=== PATIENT | male | born 2000 | race Hispanic/Latino ===

== ENCOUNTER 2020-03-08 22:31 | Emergency (ER) | payer OTHER ==
[2020-03-08] MEDS ORDERED: TETRACAINE HCL 0.5% 4 ML OPHTH SOLN ONE (23:05)
[2020-03-08] MEDS ORDERED: FLUORESCEIN SODIUM 1 STRIP STRIP ONE (23:05)
[2020-03-08] MEDS ORDERED: TETANUS/DIPHTHERIA TOXOID [ADULT] 0.5 ML VIAL IM ONE (23:41)
[2020-03-08] MEDS ORDERED: TOBRAMYCIN/DEXAMETHASONE OPTH SUSP 2.5 ML BOT ONE (23:49)
== END 2020-03-09 00:06 | disposition home or self-care (01) ==
LOC: EDH 22:31
DX: T15.92XA Foreign body on external eye, part unspecified, left eye, initial encounter (principal)
CPT/HCPCS: 90471; 90714